=== PATIENT | male | born 1990 | race Caucasian/White ===

== ENCOUNTER 2023-08-21 16:29 | Emergency (ER) | payer OTHER ==
[2023-08-21] MEDS ORDERED: Sodium Chloride 0.9% 10 ML Syringe FLUSH PRN (16:33)
[2023-08-21] MEDS ORDERED: Naloxone 0.4 MG/ML SDV IVPUSH PRN (16:34)
[2023-08-21] MEDS: Ondansetron 4 MG/2 ML SDV IVPUSH ONE (16:42)
[2023-08-21] MEDS: fentaNYL 50 MCG/ML SDV IVPUSH ONE (16:44)
[2023-08-21] MEDS: fentaNYL 50 MCG/ML SDV IVPUSH PRN (17:39)
[2023-08-21] MEDS: Bacitracin Oint 1 GM U/D Packet TOP ONE (18:30)
[2023-08-21] MEDS: Sulfamethoxazole/Trimethoprim 800-160 MG Tab PO ONE (18:30)
== END 2023-08-21 19:05 | disposition home or self-care (01) ==
LOC: LL.ED 16:29
DX: S60.551A Superficial foreign body of right hand, initial encounter (principal); Z79.899 Other long term (current) drug therapy; Z88.0 Allergy status to penicillin; W45.0XXA Nail entering through skin, initial encounter
CPT/HCPCS: 73200-RT; 96374; 96375; 96376; 99283-25; A9270-GY; J2405; J3010